=== PATIENT | female | born 1965 | race Caucasian/White ===

== ENCOUNTER 2019-12-18 09:32 | Outpatient (CLI) | payer MEDICAID, SELFPAY ==
--- NOTE | 2019-12-18 09:37 | FL_ITS ---
WS: [id number] UPPER GI WITH AIR TECHNICAL: Double contrast upper GI FLUOROSCOPY TIME: 3 minutes CLINICAL INFORMATION: GERD W/ESOPHAGITIS COMPARISON: None. FINDINGS: Swallowing: No evidence of aspiration or penetration. Esophagus: Moderate esophageal dysmotility with delayed emptying and tertiary contractions in the dis josse esophagus. Evidence of reflux esophagitis in the distal esophagus. Gastroesophageal reflux: Moderate reflux to the midesophagus observed in the upright and supine posit ions. Stomach: Diffuse prominent thickening of the gastric rugae consistent with gastritis. Suspected gastr ic ulcer in the fundus. Duodenum: Normal duodenal bulb. Other findings: Cholecystectomy clips. FL/FL upper GI w air* [id number] IMPRESSION: 1. Moderate esophageal dysmotility with delayed emptying and tertiary contract ions the distal esophagus. 2. Reflux esophagitis distal esophagus. 3. Moderate reflux is visualized in the upright and supine positions to the mi desophagus. 4. Diffuse prominent thickening of the gastric rugae consistent with gastritis . 5. Pooling of contrast in the gastric fundus suspicious for gastric ulcer. Thi s can be further evaluated with endoscopy.
== END 2019-12-18 09:33 | disposition home or self-care (01) ==
LOC: RAD 09:35
PROVIDERS: PCP Nurse Practitioner Family; Visit Provider Nurse Practitioner Family
DX: K21.0 Gastro-esophageal reflux disease with esophagitis (principal)
CPT/HCPCS: 74246

== ENCOUNTER → 2020-05-27 10:17 | Outpatient (BNVA) | payer MEDICAID, SELFPAY | PROVIDERS: PCP Nurse Practitioner Family; Visit Provider Surgery | DX: Z01.812 Encounter for preprocedural laboratory examination (principal) | CPT/HCPCS: 87635 ==

== ENCOUNTER 2020-06-01 06:20 | Day surgery (SDC) | payer MEDICAID, SELFPAY ==
[2020-05-30 13:59] VITALS: BMI 21.2
[2020-06-01 06:52] VITALS: BP 180/91; PULSE 92; RESP 18; TEMP 36.9; O2SAT 97
--- NOTE | 2020-06-01 06:55 | W.PM.OPSUD ---
Surgery/Procedure H&P Update DATE OF PROCEDURE: June 01, 2020 DATE H&P PERFORMED: 05/09/20 H&P UPDATE INFORMATION: I have reviewed H&P completed within last 30 days, I have examined patient prior to procedure and No changes to prior documentation PREOP DIAGNOSIS: Chronic diarrhea PRIMARY INDICATION FOR PROCEDURE: No change PLANNED PROCEDURE: Operation Date: 06/01/20 07:15 Proposed Procedures p Colonoscopy 05298 R19.7(Not Applicable) - Andrea Camacho MD
[2020-06-01] MEDS: sodium chloride 0.9% 1,000 ML 30 ML IV (06:59)
--- NOTE | 2020-06-01 07:25 | ANES.PREANE2 ---
Pre-Anesthetic Assessment Pre-Anesthetic Assessment: Height/Weight: Height 1.73 m Weight 63.503 kg Temp Pulse Resp BP Pulse Ox 98.4 F 92 18 180/91 97 06/01/20 06:52 06/01/20 06:52 06/01/20 06:52 06/01/20 06:52 06/01/20 06:52 Preop Diagnosis: Chronic diarrhea Proposed Procedure: Operation Date: 06/01/20 07:15 Proposed Procedures p Colonoscopy 28993 R19.7(Not Applicable) - Andrea Camacho MD Was Beta Estrellita taken within 24 hours: N/A Last intake: Intake Last Liquid Date 05/31/20 Last Liquid Time 21:00 Last Solid Date 05/30/20 Last Solid Time 22:00 Social: Social History: Tobacco and No alcohol Exam: Pre-Anes Outpt Exam: alert, oriented x 3 and regular rate & rhythm Airway: Submandibular: WNL Cervical ROM: WNL MP: 2 Dentition: False Pulmonary: Pulmonary: COPD GI: GI: GERD Musc/skel: Musc/skel: Lower Back Pain and OA/DJD Neuropsych: Neuropsych: Deficit (RUE) and Neuropathy Comments: Chronic pain/opioid Anesthetic Plan: ASA status: 3 Anesthesia: MAC Risk of > 500 ml blood loss (7ml/kg in children): No Meds/Allergies Current Medications: Current Medications Generic Name Dose Route Start Last Admin Trade Name Freq PRN Reason Stop Dose Admin Sodium Chloride 1,000 mls @ 30 ml s/hr 06/01/20 07:00 06/01/20 06:59 Sodium Chloride 0.9% IV 06/02/20 06:59 30 mls/hr .Q24H MANDEEP Administration Data Anesthesia Cardiac Studies: No Data to Display
[2020-06-01 07:46] VITALS: BP 91/60; PULSE 67; RESP 17; TEMP 36.2; O2SAT 95
[2020-06-01 08:01] VITALS: BP 115/64; PULSE 77; RESP 18; TEMP 36.4; O2SAT 96
--- NOTE | 2020-06-01 10:24 | ANE.PACU2 ---
Inpatient post-anesthesia follow up: Airway intact: Yes Vital signs: Temperature 97.5 F Pulse Rate 77 Respiratory Rate 18 Blood Pressure 115/64 Pulse Oximetry 96 Oxygen Delivery Me thod Room Air Oxygen Flow Rate Fraction of Inspir ed Oxygen Hydration adequate: Yes Nausea and vomiting: No Pain level: 1 Mental status: Baseline
== END 2020-06-01 08:40 | disposition home or self-care (01) ==
PROVIDERS: PCP Nurse Practitioner Family; Visit Provider Surgery
PROC: 0DJD8ZZ Inspection of Lower Intestinal Tract, Via Natural or Artificial Opening Endoscopic (ICD-10-PCS; CPT 45378; principal; 2020-06-01 07:15)
DX: K52.9 Noninfective gastroenteritis and colitis, unspecified (principal); D12.8 Benign neoplasm of rectum; J44.9 Chronic obstructive pulmonary disease, unspecified; K21.9 Gastro-esophageal reflux disease without esophagitis; M19.90 Unspecified osteoarthritis, unspecified site; Z79.891 Long term (current) use of opiate analgesic
CPT/HCPCS: 45380; 82274; 83630; 87493; 87506; 88305; J2704; J7030

== ENCOUNTER → 2020-06-03 14:45 | Outpatient (BNVA) | payer MEDICAID, SELFPAY | PROVIDERS: PCP Nurse Practitioner Family; Visit Provider Obstetrics & Gynecology | DX: N89.8 Other specified noninflammatory disorders of vagina (principal); Z12.4 Encounter for screening for malignant neoplasm of cervix; N82.3 Fistula of vagina to large intestine | CPT/HCPCS: 87491; 87591; 87661; 88175 ==

== ENCOUNTER → 2020-06-13 08:10 | Outpatient (BNVA) | payer MEDICAID, SELFPAY | PROVIDERS: PCP Nurse Practitioner Family; Visit Provider Obstetrics & Gynecology | DX: N82.8 Other female genital tract fistulae (principal) | CPT/HCPCS: 76830 ==

== ENCOUNTER → 2020-07-21 10:14 | Outpatient (BNVA) | payer MEDICAID, SELFPAY | PROVIDERS: PCP Nurse Practitioner Family; Visit Provider Obstetrics & Gynecology | DX: N82.3 Fistula of vagina to large intestine (principal) | CPT/HCPCS: 87635 ==

== ENCOUNTER 2020-07-27 12:04 | Observation (INO) | payer MEDICAID, SELFPAY ==
[2020-07-25 10:41] VITALS: BMI 22.6
[2020-07-25 11:17] LABS: OR HCG Qualitative Urine Negative (Negative)
[2020-07-25 11:36] LABS: Alanine Aminotransferase 26 U/L (0-33); Albumin Level 4.6 g/dL (3.5-5.2); Alkaline Phosphatase 111 IU/L (35-105); Anion Gap 14.3 (5-19); Aspartate Amino Transferase 25 U/L (0-32); Blood Urea Nitrogen 8 mg/dL (6-20); Calcium 9.1 mg/dL (8.5-10.5); Carbon Dioxide 30 mmol/L (22-29); Chloride 105 mmol/L (98-107); Globulin 3.1 g/dL (1.3-4.6); Glomerular Filtration Rate 128.1 mL/min (90-130); Glucose 74 mg/dL (65-115); Osmolality Calculated 297 mOsm/kg (285-295); Potassium 4.3 mmol/L (3.5-5.1); Sodium 145 mmol/L (136-145); Total Bilirubin 0.2 mg/dL (0.15-1.2); Total Protein 7.7 g/dL (6.6-8.7)
[2020-07-25 11:37] LABS: Basophils # 0.1 10^3/uL (0.0-0.1); Basophils % 0.8 %; Eosinophils # 0.3 10^3/uL (0.0-0.8); Eosinophils % 2.5 %; Hematocrit 46.2 % (37.0-47.0); Hemoglobin 14.2 g/dL (11.5-15.3); Lymphocytes # 4.2 10^3/uL (0.8-4.8); Lymphocytes % 38.8 %; Mean Corpuscular HGB Conc 30.7 g/dL (30.0-36.0); Mean Corpuscular Hemoglobin 26.3 pg (28.0-34.0); Mean Corpuscular Volume 85.7 fL (81-99); Mean Platelet Volume 11.9 fL (7.4-10.4); Monocytes # 0.9 10^3/uL (0.2-0.9); Monocytes % 8.1 %; Neutrophils # 5.33 10^3/uL (1.8-7.7); Neutrophils % 49.5 %; Nucleated Red Blood Cells % 0 %; Platelet Count 250 10^3/cmm (130-400); Red Blood Count 5.39 10^6/uL (4.1-5.3); Red Cell Distribution Width 16.6 % (12.1-15.1); White Blood Count 10.8 10^3/uL (4.0-10.0)
[2020-07-25 11:39] LABS: Urine Appearance Hazy (CLEAR); Urine Color Yellow (Yellow)
[2020-07-25 11:40] LABS: Add Urine Microscopic? YES; Bilirubin Urine Neg (Negative); Blood Urine Neg (Negative); Glucose Urine UA Norm (Normal); Ketones Urine Negative (Negative); Leukocyte Esterase Urine Negative (Negative); Nitrate Urine Negative (Negative); Protein Urine Neg (Negative); Urobilinogen Urine Norm (Negative); pH Urine 6 (5-7)
--- NOTE | 2020-07-25 11:45 | P.ANESASSM_ITS ---
Pre-Anesthetic Assessment Pre-Anesthetic Assessment: Height/Weight: Height 1.73 m Weight 67.585 kg Preop Diagnosis: Rectovaginal fistula Proposed Procedure: Operation Date: 07/27/20 10:45 Proposed Procedures p Recto-Vaginal Fistula Repair 37109 N82.3(Not Applicable) - Edilberto Montiel MD Was Beta Estrellita taken within 24 hours: N/A Was Clonidine taken within 24 hours: N/A Social: Social History: Tobacco and No alcohol Exam: Pre-Anes Outpt Exam: alert, oriented x 3 and regular rate & rhythm Airway: Submandibular: WNL Cervical ROM: WNL MP: 2 Dentition: False Pulmonary: Pulmonary: COPD GI: GI: GERD Musc/skel: Comments: Chronic pain Neuropsych: Neuropsych: Neuropathy Comments: Mylopathic neck disease Anesthetic Plan: ASA status: 3 Anesthesia: General Risk of > 500 ml blood loss (7ml/kg in children): No PFSH Anesthesia PFSH: Medical History Colon polyps Family History Family/Other Diabetes maternal aunt Stroke maternal Heart disease maternal aunt Brother Hypertension Mother Hypertension Heart disease Sister Colon cancer, Onset Age: 46 Denies family history of Ovarian cancer Clotting disorder Hyperlipidemia Breast cancer Anesthesia complication Bleeding disorder Uterine cancer Thyroid condition Social History (Updated 07/25/20 @ 09:35 by Kailee Vazquez RN) Smoking and tobacco status: current every day smoker cigarettes Packs smoked per day: 1 Alcohol intake: never Substance/Drug Use: never Female Reproductive History: Date of last menstrual period: 10/19/19 Data Anesthesia CBC & Chem 7: 07/25/20 10:55 07/25/20 10:55 Other Labs: Laboratory Results - last 48 hr 07/25/20 07/25/20 07/25/20 10:55 10:55 11:06 WBC 10.8 H RBC 5.39 H Hgb 14.2 Hct 46.2 MCV 85.7 MCH 26.3 L MCHC 30.7 RDW 16.6 H Plt Count 250 MPV 11.9 H Neut % (Auto) 49.5 Lymph % (Auto) 38.8 [place] % (Auto) 8.1 Eos % (Auto) 2.5 Baso % (Auto) 0.8 Neut # (Auto) 5.33 Lymph # (Auto) 4.2 [place] # (Auto) 0.9 Eos # (Auto) 0.3 Baso # (Auto) 0.1 Nucleated RBC % (auto) 0 Nucleated RBCs # 0.0 Sodium 145 Potassium 4.3 Chloride 105 Carbon Dioxide 30 H Anion Gap 14.3 BUN 8 Creatinine 0.5 GFR Calculation 128.1 Glucose 74 Calculated Osmolality 297 H Calcium 9.1 Total Bilirubin 0.2 AST 25 ALT 26 Alkaline Phosphatase 111 H Total Protein 7.7 Albumin 4.6 Globulin 3.1 Urine Color Yellow Urine Appearance Hazy A Urine pH 6 Ur Specific [place] 1.010 Urine Protein Neg Urine Glucose (UA) Norm Urine Ketones Negative Urine Blood Neg Urine Nitrate Negative Urine Bilirubin Neg Urine Urobilinogen Norm Ur Leukocyte Esterase Negative Amorphous Sediment Not Reportable Urine HCG, Qual 07/25/20 11:15 WBC RBC Hgb Hct MCV MCH MCHC RDW Plt Count MPV Neut % (Auto) Lymph % (Auto) [place] % (Auto) Eos % (Auto) Baso % (Auto) Neut # (Auto) Lymph # (Auto) [place] # (Auto) Eos # (Auto) Baso # (Auto) Nucleated RBC % (auto) Nucleated RBCs # Sodium Potassium Chloride Carbon Dioxide Anion Gap BUN Creatinine GFR Calculation Glucose Calculated Osmolality Calcium Total Bilirubin AST ALT Alkaline Phosphatase Total Protein Albumin Globulin Urine Color Urine Appearance Urine pH Ur Specific [place] Urine Protein Urine Glucose (UA) Urine Ketones Urine Blood Urine Nitrate Urine Bilirubin Urine Urobilinogen Ur Leukocyte Esterase Amorphous Sediment Urine HCG, Qual Negative Cardiac Studies: No Data to Display
[2020-07-25 12:20] LABS: Add Urine Culture? No; Bacteria Urine TRACE /hpf; Squamous Epithelial Cell Urine 25-40 /hpf (0-5)
[2020-07-27] VITALS (17 sets, daily range): BP systolic 107–177; BP diastolic 61–97; PULSE 62–88; RESP 12–20; TEMP 36.4–37.1; O2SAT 91–98
--- NOTE | 2020-07-27 09:50 | P.ANESUD_ITS ---
Pre-Anesthetic Update Pre-Anesthetic Assessment: Date of Surgery/Procedure: 07/27/20 Preop Nikki gnosis: Rectovaginal fistula Proposed Procedure: Operation Date: 07/27/20 10:45 Proposed Procedures p Recto-Vaginal Fistula Repair 90113 N82.3(Not Applicable) - Edilberto Montiel MD Any changes to Pre-Anesthetic Assessment?: No Last Intake: Intake Last Liquid Date 07/26/20 Last Liquid Time 23:59 Last Solid Date 07/26/20 Last Solid Time 22:00 Labs Last 48hrs: Laboratory Results - last 48 hr 07/25/20 07/25/20 07/25/20 10:55 10:55 10:55 WBC 10.8 H RBC 5.39 H Hgb 14.2 Hct 46.2 MCV 85.7 MCH 26.3 L MCHC 30.7 RDW 16.6 H Plt Count 250 MPV 11.9 H Neut % (Auto) 49.5 Lymph % (Auto) 38.8 [place] % (Auto) 8.1 Eos % (Auto) 2.5 Baso % (Auto) 0.8 Neut # (Auto) 5.33 Lymph # (Auto) 4.2 [place] # (Auto) 0.9 Eos # (Auto) 0.3 Baso # (Auto) 0.1 Nucleated RBC % (a uto) 0 Nucleated RBCs # 0.0 Sodium 145 Potassium 4.3 Chloride 105 Carbon Dioxide 30 H Anion Gap 14.3 BUN 8 Creatinine 0.5 GFR Calculation 128.1 Glucose 74 Calculated Osmolal ity 297 H Calcium 9.1 Total Bilirubin 0.2 AST 25 ALT 26 Alkaline Phosphata se 111 H Total Protein 7.7 Albumin 4.6 Globulin 3.1 Urine Color Urine Appearance Urine pH Ur Specific Gravit y Urine Protein Urine Glucose (UA) Urine Ketones Urine Blood Urine Nitrate Urine Bilirubin Urine Urobilinogen Ur Leukocyte Sangeetha ase Urine RBC Urine WBC Ur Squamous Epith Cells Amorphous Sediment Urine Bacteria Urine HCG, Qual Blood Type O Positive Rho(D) Type Positive / 4+ Antibody Screen Negative 07/25/20 07/25/20 11:06 11:15 WBC RBC Hgb Hct MCV MCH MCHC RDW Plt Count MPV Neut % (Auto) Lymph % (Auto) [place] % (Auto) Eos % (Auto) Baso % (Auto) Neut # (Auto) Lymph # (Auto) [place] # (Auto) Eos # (Auto) Baso # (Auto) Nucleated RBC % (a uto) Nucleated RBCs # Sodium Potassium Chloride Carbon Dioxide Anion Gap BUN Creatinine GFR Calculation Glucose Calculated Osmolal ity Calcium Total Bilirubin AST ALT Alkaline Phosphata se Total Protein Albumin Globulin Urine Color Yellow Urine Appearance Hazy A Urine pH 6 Ur Specific Gravit y 1.010 Urine Protein Neg Urine Glucose (UA) Norm Urine Ketones Negative Urine Blood Neg Urine Nitrate Negative Urine Bilirubin Neg Urine Urobilinogen Norm Ur Leukocyte Sangeetha ase Negative Urine RBC None Urine WBC None Ur Squamous Epith Cells 25-40 H Amorphous Sediment Not Reportable Urine Bacteria Trace Urine HCG, Qual Negative Blood Type Rho(D) Type Antibody Screen Vitals: Temperature 98.2 F 07/27/20 09:32 Temperature Source Temporal Artery S can 07/27/20 09:32 Pulse Rate 88 07/27/20 09:32 Respiratory Rate 18 07/27/20 09:32 Blood Pressure 177/97 07/27/20 09:32 Blood Pressure Aspen n 123 07/27/20 09:32 Pulse Oximetry 97 07/27/20 09:32 Oxygen Delivery Me thod 07/27/20 09:32 Exam: Pre-Anes Outpt Exam: alert, oriented x 3, clear to auscultation bilaterally and regular rate & rhythm Cardiac Studies: No Data to Display
[2020-07-27] MEDS: midazolam 1 mg/mL INJ 2 mL 2 MG IVP (10:15)
[2020-07-27] MEDS: sodium chloride 0.9% 1,000 ML 30 ML IV (10:40)
[2020-07-27] MEDS: scopolamine 1.5 Patch 1 PATCH TRANSDERMA (10:45)
[2020-07-27] MEDS: vancomycin 1,000 MG in sodium chloride 0.9% 250 ML 250 MG IV (10:45)
--- NOTE | 2020-07-27 10:47 | W.PM.OPSUD ---
Surgery/Procedure H&P Update DATE OF PROCEDURE: July 27, 2020 DATE H&P PERFORMED: 07/25/20 H&P UPDATE INFORMATION: I have reviewed H&P completed within last 30 days, I have examined patient prior to procedure and No changes to prior documentation PREOP DIAGNOSIS: Rectovaginal fistula PLANNED PROCEDURE: Operation Date: 07/27/20 10:45 Proposed Procedures p Recto-Vaginal Fistula Repair 70625 N82.3(Not Applicable) - Edilberto Montiel MD
[2020-07-27] MEDS: levofloxacin-dextrose 5 % 500 MG/100 ML PREMIX 100 MG IV (10:55)
--- NOTE | 2020-07-27 11:39 | P.OP_ITS ---
Operative Report Date of procedure: July 27, 2020 Pre-op Diagnosis: Rectovaginal fistula Post-op diagnosis: same Anesthesia: MAC Estimated blood loss (mL): 15 IV fluids (mL): 400 Urine output (mL): 100 Condition: stable Disposition: PACU Brief History: 54-year-old female with rectovaginal fistula Procedure: The patient after confirming and assuring the patient had signed the informed consent she was taken to the operating room where she underwent anesthesia. She was then placed in the lithotomy position using candy-cane stirrups. The vulva and vagina were prepped and the patient was draped. A time out procedure was performed. A lacrimal duct probe was used to define the fistulous tract and a transperineal incision was made. The rectovaginal septum was developed and with an index finger in the rectum, the rectovaginal septum was easily defined. The fistulous tract was isolated and using the lacrimal duct probe, it was completely isolated. Using electrocautery dissection on the pure cut mode, the rectal mucosa was entered in a circumferential fashion as was the vaginal mucosa. This allowed for removal of the fistulous tract intact, with both epithelial layers preserved. The perineum and rectum were irrigated vigorously and then the rectal mucosa was reapproximated by imbricating it with a running stitch of number 3-0 vicryl. The rectal vault was distended with saline and the repair was watertight. The defect was irrigated, suctioned, inspected and found to be free of clot, blood or debris. The perineal body was reconstructed with reapproximation of the levator muscles, using a series of interrupted horizontal mattress stitches of number 2-0 Vicryl. This allowed for excellent latter-day of the perineal body. After this was accomplished, the defect was once again irrigated, suctioned, inspected, and found to be free of clot, blood or debris. The vaginal defect was closed with a running locking stitch of number 2-0 Vicryl and the perineal incision was closed with a subcuticular stitch of number 2-0 Vicryl. The patient was awakened and taken to the recovery room in stable condition, after having tolerated the procedure well.
--- NOTE | 2020-07-27 11:47 | P.PCN_ITS ---
PACU note PACU note: VSS, Good respiratory effort, report to PUBLIC SERVICE ADMINISTRATOR Post-Anesthesia Exam: awake
--- NOTE | 2020-07-27 11:47 | PM.PACU ---
PACU note PACU note: VSS, Good respiratory effort, report to TRAVELING ENGINEER Post-Anesthesia Exam: awake
[2020-07-27] MEDS: HYDROcodone-acetaminophen 5-325 mg Tablet PO ×2 (12:57→20:12)
--- NOTE | 2020-07-27 12:58 | PC.NURSE ---
When patient stood up from the gurney to ambulate to the bed in her room, vaginal packing came out. Verified by [facility] PACU nurse.
--- NOTE | 2020-07-27 13:19 | PC.SOCIAL ---
CM was triggered, spoke to OB nurse. False trigger. States no needs from CM.
--- NOTE | 2020-07-27 13:23 | PC.NURSE ---
Patient reports her pain is a 5, and she reports her pain is at a level which is normal for her.
[2020-07-27] MEDS: dextrose 5%-lactated ringers 1,000 ML 125 ML IV (14:21)
--- NOTE | 2020-07-27 14:23 | PC.NURSE ---
Patient reports passing gas a few times.
--- NOTE | 2020-07-27 14:32 | ANE.PACU2 ---
Inpatient post-anesthesia follow up: Airway intact: Yes Vital signs: Temperature 97.5 F Pulse Rate 63 Respiratory Rate 15 Blood Pressure 121/63 Pulse Oximetry 96 Oxygen Delivery Me thod Room Air Oxygen Flow Rate Fraction of Inspir ed Oxygen Hydration adequate: Yes Nausea and vomiting: No Pain level: 1 Mental status: Baseline
[2020-07-27] MEDS: baclofen 10 mg Tablet PO ×2 (14:34→20:12)
[2020-07-27] MEDS: pregabalin 100 mg Capsule PO ×3 (14:34→20:12)
--- NOTE | 2020-07-27 14:37 | PC.NURSE ---
Patient changed 1 pad, less than 1/4 saturated.
--- NOTE | 2020-07-27 15:48 | PC.NURSE ---
pt up to the restroom at this time. Patient only had 120mL of urine in hat and she missed the hat with part of her voiding. New peripad placed.
[2020-07-27] MEDS: docusate sodium 100 mg Capsule PO (17:10)
[2020-07-27] MEDS: ibuprofen 800 mg tablet PO (20:12)
[2020-07-27] MEDS: benzonatate 100 mg Capsule 200 MG PO (21:28)
[2020-07-28] MEDS: ibuprofen 800 mg tablet PO (05:07)
[2020-07-28] MEDS: HYDROcodone-acetaminophen 5-325 mg Tablet PO ×2 (05:07→10:15)
[2020-07-28 05:11] VITALS: BP 126/56; PULSE 55; RESP 16; TEMP 36.6; O2SAT 93
[2020-07-28 05:36] LABS: Hematocrit 39.8 % (37.0-47.0); Hemoglobin 12.1 g/dL (11.5-15.3); Mean Corpuscular HGB Conc 30.4 g/dL (30.0-36.0); Mean Corpuscular Hemoglobin 26.5 pg (28.0-34.0); Mean Corpuscular Volume 87.3 fL (81-99); Mean Platelet Volume 11.9 fL (7.4-10.4); Platelet Count 212 10^3/cmm (130-400); Red Blood Count 4.56 10^6/uL (4.1-5.3); Red Cell Distribution Width 16.9 % (12.1-15.1); White Blood Count 9.5 10^3/uL (4.0-10.0)
[2020-07-28] MEDS: pregabalin 100 mg Capsule PO (08:10)
[2020-07-28] MEDS: pantoprazole DR 40 mg Tablet PO (08:10)
[2020-07-28] MEDS: docusate sodium 100 mg Capsule PO (08:10)
[2020-07-28] MEDS: baclofen 10 mg Tablet PO (08:10)
--- NOTE | 2020-07-28 10:04 | PM.SDS ---
Short Stay Summary Providers Date of Admit/Discharge: 07/28/20 Attending Provider: Edilberto Montiel MD Primary Care Provider: Rosita Wright Chief Complaint: Rectovaginal fistula HPI History of Present Illness Eliane Lawrence is a 54 year old female with a rectovaginal fistula approximately 3 cm from the introitus Review of Systems General: Reports: 10 or more systems reviewed and unremarkable except in HPI and below Const: Denies: fever(s), chills or body aches Eyes: Denies: change in vision or blurry vision ENMT: Denies: throat pain or odynophagia Card: Denies: chest pain or palpitations Resp: Reports: dyspnea; Denies: productive cough or non-productive cough GI: Reports: diarrhea, constipation and hematochezia; Denies: abdominal pain, nausea or vomiting : Reports: amenorrhea (no menses since 1 year); Denies: flank pain, difficulty voiding or dysuria Musc: Reports: neck pain and back pain Skin/Breast: Reports: rash Neuro: Reports: headache(s) and numbness in extremities; Denies: seizure-like activity Psych: Reports: anxiety; Denies: depression Ramiro/Lymph: Denies: easy bruising or easy bleeding All/Imm: Denies: urticaria Home Meds/Allergies Home Medications and Allergies Home Medications Medication Instructions Recorded Confirmed Type baclofen 10 mg tablet 10 mg PO TID 05/09/20 07/25/20 History benzonatate 200 mg capsule 200 mg PO BID PRN 05/09/20 07/25/20 History fluticasone propionate 50 1 spray INTRANASAL DAILY 05/09/20 07/27/20 History mcg/actuation nasal spray,suspension hydrocodone 10 mg-acetaminophen 1 tab PO Q6H PRN 05/09/20 07/25/20 History 325 mg tablet hydroxyzine HCl 25 mg tablet 25 mg PO QID PRN 05/09/20 07/27/20 History loperamide 2 mg capsule 2 mg PO Q6H PRN 05/09/20 07/25/20 History pseudoephedrine-guaifenesin ER 60 1 tab PO BID PRN 05/09/20 07/25/20 History mg-600 mg tablet,extend release 12hr pantoprazole 40 mg tablet,delayed 40 mg PO BID tab 07/25/20 07/25/20 History release pregabalin 100 mg capsule 100 mg PO QID cap 07/25/20 07/27/20 History Allergies Allergy/AdvReac Type Severity Reaction Status Date / Time morphine Allergy Intermediate vomiting Verified 07/25/20 10:37 Penicillins Allergy unknown Verified 07/25/20 10:37 PFSH Acute PFSH: Medical History Colon polyps Family History Family/Other Diabetes maternal aunt Stroke maternal Heart disease maternal aunt Brother Hypertension Mother Hypertension Heart disease Sister Colon cancer, Onset Age: 46 Denies family history of Ovarian cancer Clotting disorder Hyperlipidemia Breast cancer Anesthesia complication Bleeding disorder Uterine cancer Thyroid condition Social History (Updated 07/25/20 @ 09:35 by Kailee Vazquez RN) Smoking and tobacco status: current every day smoker cigarettes Packs smoked per day: 1 Alcohol intake: never Female Reproductive History: Date of last menstrual period: 10/19/19 Vitals/I&O/Wt Last Vital Signs Temp 97.8 F 07/28/20 05:11 Pulse 55 L 07/28/20 05:11 Resp 16 07/28/20 05:11 BP 126/56 07/28/20 05:11 Pulse Ox 93 07/28/20 05:11 07/27/20 07/28/20 07/28/20 22:59 06:59 14:59 Intake Total 379.167 / 1969.167 400 / 2369.167 Output Total 440 / 1030 300 / 1330 Balance -60.833 / 939.167 100 / 1039.167 Physical Exam Narrative: EXAM NARRATIVE: GA: Alert and oriented ?3. HEENT: WNL. Heart: Regular rate and rhythm. Lungs: Clear to auscultation bilaterally. Abdomen: Bowel sounds present, nontender, minimal tenderness, incision clean and dry, no redness, pain or edema. SERVICE STATION HELPER: No bleeding. Extremities: No edema, no cyanosis, no calves pain. Urinary Catheter Management^: Beckham Latex Free: Cath Placed During This Visit: yes, but has since been removed by the nurse Urinary Catheter Date of Insertion: 07/27/20 Urinary Catheter Time of Insertion: 11:09 Date Urinary Catheter Removed: 07/27/20 Time Urinary Catheter Discontinued: 11:25 Hospital Course Hospital Course Mrs. Lawrence 54-year-old female with a rectovaginal fistula approximately 3 cm from introitus. Admitted for rectovaginal fistula repair. The procedure was performed without complications. Overnight observation was uneventful. Tolerating diet well. Ambulating without difficulty. Pain under control. She is afebrile and hemodynamically stable SSS Data Data Completed and Pending: Pending at discharge Category Date Time Status Pathology: Surgic al [PTH] Routine Pth 07/27/20 11:46 Received Discharge Plan Discharge Patient Disposition: Home Condition: Stable Prescriptions: New docusate sodium [Colace] 100 mg capsule 100 mg PO BID Qty: 60 RF: 0 ibuprofen 800 mg tablet 800 mg PO TID PRN (Reason: pain) Qty: 60 RF: 0 Continued hydroxyzine HCl 25 mg tablet 25 mg PO QID PRN (Reason: Itching) RF: 0 fluticasone propionate [Allergy Relief (fluticasone)] 50 mcg/actuation spray,suspension 1 spray intranasal DAILY RF: 0 baclofen 10 mg tablet 10 mg PO TID RF: 0 hydrocodone-acetaminophen 10-325 mg tablet 1 tab PO Q6H PRN (Reason: Pain) RF: 0 benzonatate 200 mg capsule 200 mg PO BID PRN (Reason: Cough) RF: 0 loperamide [Anti-Diarrheal (loperamide)] 2 mg capsule 2 mg PO Q6H PRN (Reason: Diarrhea) RF: 0 pseudoephedrine-guaifenesin [Mucinex D] 60-600 mg tablet extended release 12 hr 1 tab PO BID PRN (Reason: Cough) RF: 0 pantoprazole 40 mg tablet,delayed release (DR/EC) 40 mg PO BID RF: 0 pregabalin 100 mg capsule 100 mg PO QID RF: 0 Discharge Orders: Discharge Order (Routine); Ordered 07/28/20 Ordered By: Edilberto Montiel Referrals: Edilberto Montiel MD [Physician] - (* Your 2 week check up is on 08/12/2020 at 10:45am. * Your 6 week follow up appointment is on 09/09/2020 at 1:00pm) Discharge Diet: GI Soft Discharge Activity: Limit activity as instructed Patient Instructions: Rectal Fistulotomy (DC), OB Discharge Report, OB Food/Drug Interaction Guide, Opioid Safety Activity Restrictions/Additional Instructions: 1. Please call [facility] on next working day to make your post-operative appointment in 2 weeks. 2. Please stay home until you come back to the clinic on first post-operative check up. 3. Please follow instructions on your medications CAREFULLY. 4. If you have abdominal incision, do not cover it unless dressing is necessary because of drainage. OK to shower, but avoid bath. Leave steri-strips until they fall off. If they are still on one week after surgery, you may remove them. 5. If you had vaginal surgery or vaginal repair, Dr. Montiel may instruct you to take SITZ bath. 6. Yellow, blood tinged odorous vaginal discharge is usually normal after hysterectomy or vaginal surgeries. 7. No sexual intercourse, tampons, or douches until you are completely released from the post-operative care. 8. Avoid constipation by eating right and maybe using some Metamucil or Milk of Magnesia. 9. All prescription refills are given during the working hours. Please do no wait till it runs out. Call the clinic at [phone] before your medication runs out. The clinic will get in touch with your doctor to prescribe medications if necessary. 10. Please remain within 40 mile radius from our hospital because emergencies do happen now and then during the post-operative period. 11. If you have stairs at home, take one step at a time slowly and minimize the number of trips. It helps to stay in one floor for the next few days. No lifting except what you can lift by one hand until you are released from the post-operative care. 12. Driving is discouraged until you are well healed. It may be 3-4 weeks before you feel strong enough to drive. You should be able to turn and look through the rear window without pain and you should be able to push the brake pedal very hard without pain before you drive. No fast rules, but SAFETY should be your primary concern. DO NOT drive if you are on sedating medications such as narcotics. 13. Call the clinic (during working hours) to make urgent appointment or go to the Emergency room, if any of the following occurs: i. Vaginal bleeding becomes heavy, more than a period. ii. Incision becomes red and sore, or drains pus. iii. Your temperature is over 100.4 or you have chill. iv. IV site becomes red and swollen (a little ``knot?? is usually OK) v. Persistent nausea and vomiting vi. Persistent constipation or diarrhea vii. Rash or allergic reaction to medications. Attestations Medical Necessity Statement*: In my professional opinion per admitting diagnosis Time Spent in Patient Care*: greater than 30 min Quality Metrics Clinical Quality Measures: During this hospital stay, did patient experience: None Coding Level of Care Code Acute Deputy Jailer for Ruben Gibson
[2020-07-28 10:50] VITALS: BP 153/54; PULSE 92; RESP 18; TEMP 36.5; O2SAT 96
--- NOTE | 2020-07-29 18:03 | PC.RESP ---
Smoking Cessation information sent to patient.
== END 2020-07-28 10:55 | disposition home or self-care (01) ==
LOC: OBGYN 12:34
PROVIDERS: Admitting Provider Obstetrics & Gynecology; PCP Nurse Practitioner Family; Visit Provider Obstetrics & Gynecology
PROC: (CPT 57308; principal; 2020-07-27 10:35)
DX: N82.3 Fistula of vagina to large intestine (principal); F17.210 Nicotine dependence, cigarettes, uncomplicated; J44.9 Chronic obstructive pulmonary disease, unspecified; K21.9 Gastro-esophageal reflux disease without esophagitis; G89.29 Other chronic pain
CPT/HCPCS: 57308; 36415; 80053; 81001; 84703; 85025; 85027; 86850; 86900; 96374; G0378; J1885; J1956; J2250; J2405; J2704; J3010; J3370; J7030; J7050

== ENCOUNTER 2020-08-24 23:00 | Observation (INO) | payer MEDICAID, SELFPAY ==
[2020-08-25] VITALS (24 sets, daily range): BP systolic 122–193; BP diastolic 58–88; PULSE 74–98; RESP 14–22; TEMP 36.2–37.2; O2SAT 90–96
--- NOTE | 2020-08-25 | SCC_ITS ---
Procedure Done: Open reduction internal fixation right tibia fracture, long oblique, with Radha intramedullary jonathan 459.1 seconds of fluoroscopic guidance, for a cumulative dose of 13.57 mGy, was provided to Dr. Torres by the radiology department. C-arm images of the RIGHT tibia fibula were saved for the patient's permanent record.. [facility]
--- NOTE | 2020-08-25 00:52 | PM.HP ---
Providers/Chief Complaint Admitting Physician: Brad Fritz Primary Care Provider: Rosita Wright LOCATION MANAGER Chief Complaint: broken leg History of Present Illness Eliane Lawrence is a 54 year old female who was transferred from [facility] with diagnosis of displaced right tib-fib fracture. The patient was accepted by Nicolasa Zamudio. The patient reports that she fell yesterday afternoon in her room. It was dark and she did not see the floor lamp. She tripped over it and fell. Developed severe pain in the right lower extremity after the fall. The patient received fentanyl and . the right lower extremity was immobilized. Currently the pain is minimal. Reports worsening with movements. Denies any associated symptoms. Denies any other types of trauma during the fall. Denies dizziness, lightheadedness, weakness before or after the fall. Denies headache or neck pain. No chest pain, shortness of breath, cough, palpitations. No nausea or vomiting. No diarrhea. Denies any significant prior chronic medical conditions. Social history. Reports smoking tobacco on a regular basis. Denies drugs and alcohol use. Review of Systems General: Reports: 10 or more systems reviewed and unremarkable except in HPI and below Medications/Allergies Home Medications Medication Instructions Recorded Confirmed Last Taken Type baclofen 10 mg tablet 10 mg PO TID 05/09/20 08/12/20 07/27/20 07:00 History benzonatate 200 mg capsule 200 mg PO BID PRN 05/09/20 08/12/20 07/27/20 07:00 History fluticasone propionate 50 1 spray INTRANASAL DAILY 05/09/20 08/12/20 07/26/20 History mcg/actuation nasal spray,suspension hydrocodone 10 mg-acetaminophen 1 tab PO Q6H PRN 05/09/20 08/12/20 07/27/20 07:00 History 325 mg tablet hydroxyzine HCl 25 mg tablet 25 mg PO QID PRN 05/09/20 08/12/20 07/26/20 History loperamide 2 mg capsule 2 mg PO Q6H PRN 05/09/20 08/12/20 07/26/20 History pseudoephedrine-guaifenesin ER 60 1 tab PO BID PRN 05/09/20 08/12/20 07/27/20 07:00 History mg-600 mg tablet,extend release 12hr pantoprazole 40 mg tablet,delayed 40 mg PO BID tab 07/25/20 08/12/20 07/27/20 07:00 History release pregabalin 100 mg capsule 100 mg PO QID cap 07/25/20 08/12/20 07/27/20 07:00 History docusate sodium [Colace] 100 mg PO BID #60 cap 07/28/20 08/12/20 Unknown Rx ibuprofen 800 mg PO TID PRN #60 tab 07/28/20 08/12/20 Unknown Rx Allergies Allergy/AdvReac Type Severity Reaction Status Date / Time ibuprofen Allergy Intermediate Nausea/vomi Verified 08/12/20 10:55 ting morphine Allergy Intermediate vomiting Verified 08/12/20 10:55 Penicillins Allergy unknown Verified 08/12/20 10:55 PFSH Acute PFSH: Medical History (Updated 08/15/20 @ 11:18 by Edilberto Montiel MD) Aftercare following surgery of the genitourinary system Colon polyps Surgical History (Updated 08/15/20 @ 11:18 by Edilberto Montiel MD) H/O vaginal surgery 07/27/2020- rectovaginal fistula repair performed by Dr. Montiel at [facility] History of cholecystectomy History of colonoscopy with polypectomy (~05/2020) History of neck surgery Family History Family/Other Diabetes maternal aunt Stroke maternal Heart disease maternal aunt Brother Hypertension Mother Hypertension Heart disease Sister Colon cancer, Onset Age: 46 Denies family history of Ovarian cancer Clotting disorder Hyperlipidemia Breast cancer Anesthesia complication Bleeding disorder Uterine cancer Thyroid condition Social History (Updated 08/12/20 @ 10:57 by Kailee Vazquez RN) Smoking and tobacco status: current every day smoker cigarettes Packs smoked per day: 0.5 Alcohol intake: never Female Reproductive History: Date of last menstrual period: 10/19/19 Physical Exam Narrative: EXAM NARRATIVE: The patient is awake alert oriented. No acute distress. Mood and affect are appropriate. Responses are adequate. Skin is warm and dry. Moist mucous membranes Eyes PERRL, extraocular muscles are intact. Normal speech. Neck supple. No JVD. Nontender. Lungs bilateral diffuse wheezes. No respiratory distress. No crackles. Heart S1, S2, regular Abdomen soft, nontender, bowel sounds are present Extremities right lower extremity is immobilized. Toes are pink and warm. Left lower extremity without edema or cyanosis. No calf tenderness. Neurologic examination reveals no significant weakness. Movements in the right lower extremity are limited due to the cost and pain. Data Other Labs: CBC revealed mild leukocytosis. Probably reactive. Chemistry panel mild elevation of sodium. Otherwise no significant abnormalities. Chest x-ray showed clear lungs and normal size of heart. No acute findings. EKG showed T wave inversion in septal leads. Normal sinus. A&P Additional A&P Information 54-year-old female who was transferred from [facility] with diagnosis of right tib-fib displaced fracture after a mechanical fall. Right tib-fib fracture. NPO. Dilaudid as needed. The patient will be seen by Dr. Russell in the morning. Probably will undergo surgery. Perioperative risk assessment. The patient will probably undergo intermediate risk surgery. The patient has T wave changes on EKG. No previous to compare with. However no history of CHF or coronary artery disease. No chest pain or shortness of breath. She reports good functional status which is above 4 METS. She is in her most optimal state to undergo this surgery. No additional treatments or testing is necessary prior to the surgery. Hypertension. Will order as needed labetalol. Tobacco abuse. Counseling is provided. The plan of care was discussed with the patient. She verbalized understanding and agreement. Attestations Medical Necessity Statement*: Observation Coding Level of Care Code Acute Money Room Supervisor for Ruben Gibson
[2020-08-25] MEDS: lactated ringers 1,000 ML 75 ML IV ×2 (01:09→18:12)
[2020-08-25] MEDS: famotidine 20 mg/2 mL INJ IVP (01:09)
[2020-08-25] MEDS: HYDROmorphone 1 mg/mL INJ 1 mL 0.2 MG IVP ×2 (05:20→09:11)
[2020-08-25 06:18] LABS: Basophils # 0.1 10^3/uL (0.0-0.1); Basophils % 0.7 %; Eosinophils # 0.1 10^3/uL (0.0-0.8); Eosinophils % 1.1 %; Hematocrit 41.6 % (37.0-47.0); Hemoglobin 12.8 g/dL (11.5-15.3); Lymphocytes # 2.4 10^3/uL (0.8-4.8); Lymphocytes % 22.7 %; Mean Corpuscular HGB Conc 30.8 g/dL (30.0-36.0); Mean Corpuscular Hemoglobin 26.7 pg (28.0-34.0); Mean Corpuscular Volume 86.8 fL (81-99); Mean Platelet Volume 11.6 fL (7.4-10.4); Neutrophils # 7.09 10^3/uL (1.8-7.7); Neutrophils % 66.3 %; Nucleated Red Blood Cells % 0 %; Platelet Count 201 10^3/cmm (130-400); Red Blood Count 4.79 10^6/uL (4.1-5.3); Red Cell Distribution Width 16.1 % (12.1-15.1); White Blood Count 10.7 10^3/uL (4.0-10.0)
[2020-08-25 06:34] LABS: INR 1.02 (0.8-1.2)
[2020-08-25 06:43] LABS: Anion Gap 12.2 (5-19); Blood Urea Nitrogen 7 mg/dL (6-20); Calcium 8.9 mg/dL (8.5-10.5); Carbon Dioxide 31 mmol/L (22-29); Chloride 106 mmol/L (98-107); Glomerular Filtration Rate 128.1 mL/min (90-130); Glucose 108 mg/dL (65-115); Magnesium 2.1 mg/dL (1.7-2.3); Osmolality Calculated 299 mOsm/kg (285-295); Potassium 4.2 mmol/L (3.5-5.1); Sodium 145 mmol/L (136-145)
[2020-08-25 07:08] LABS: Partial Thromboplastin Time 27.8 SECONDS (23.9-36.7)
--- NOTE | 2020-08-25 07:30 | XRR_ITS ---
PROCEDURE INFORMATION: Exam: XR Right Tibia and Fibula Exam date and time: 08/25/2020 7:49 AM Age: 54 years old Clinical indication: Injury or trauma and condition or disease; Fall; Other: FX; Blunt trauma; Lower leg; Right; Injury date: 08/24/20; Additional info: Fracture TECHNIQUE: Imaging protocol: XR Right tibia and fibula. Views: 2 views. COMPARISON: DX Tibia and Fibula RIGHT [id number] 08/24/2020 6:54 PM FINDINGS: Bones/joints: Obliquely oriented displaced proximal fibular fracture. Minimal change from the previous radiograph. Obliquely oriented displaced fracture involving the distal tibial diaphysis. Soft tissues: Limited characterization of the osseous structures and soft tissues secondary to the overlying cast. XR/XR tibia fibula RT 2V [id number] IMPRESSION: Limited characterization of the osseous structures and soft tissues secondary to the overlying cast. Obliquely oriented displaced proximal fibular fracture. Minimal change from the previous radiograph. Obliquely oriented displaced fracture involving the distal tibial diaphysis. Minimal change.
--- NOTE | 2020-08-25 08:22 | CT_ITS ---
WS: [id number] NONCONTRAST CT RIGHT ANKLE WITH CORONAL AND SAGITTAL REFORMATTED IMAGES. TECHNIQUE: Noncontrast CT right ankle with coronal and sagittal reformatted images. CLINICAL INFORMATION: possible facture COMPARISON: Comparison outside radiographs 08/24August 25, 2020 DLP: 2356.[address] scans at [facility] use at least one of these dose optimization techniques: automat ed exposure control; mA and/or kV adjustment per patient size (includes targeted exams where dose is matched to clinical indication); or iterative reconstruction. FINDINGS: Splint material left lower extremity and left ankle. Normal medial and lateral malleolus. Distal fibu la is normal in appearance. Moderate degenerative changes at the ankle mortise with subchondral cysti c change involving the talar dome. Partially visualized oblique spiral type fracture involving the ti rola diaphysis. Anterior displacement of the proximal fragment measuring 1 shaft width. Additional non displaced fracture involving the proximal fracture fragment distally. Oblique fracture is slightly co mminuted with a few small satellite fracture fragments. Benign enchondroma right tibia diametaphysis. Additional similar-appearing enchondroma distal left ti rola diametaphysis.Small plantar and Achilles calcaneal spurs. CT/CT ankle RT wo con* [id number] IMPRESSION: 1. Ankle mortise is normal in appearance. Normal medial and lateral malleolus. 2. 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 3. Oblique spiral type fracture involving the tibial diaphysis with one shaft width anterior displacement of the proximal fragment. A few tiny satellite frac ture fragments. 4. Benign enchondroma distal tibial shaft.
[2020-08-25] MEDS: albuterol 8 gm MDI 2 PUFF INHALATION ×2 (09:04→19:26)
--- NOTE | 2020-08-25 09:09 | PM.CONSULT ---
Providers/Reason For Consult Consulting Physican/Specialty*: Inga Torres MD Reason for Consult*: Right tibial shaft with fibula fracture Requesting Physcian: [facility] emergency department Attending Physician: Vandana Morgan MD Primary Care Provider: Rosita Wright History of Present Illness History of Present Illness Eliane Lawrence is a 54 year old female who presented from [facility] after suffering a displaced right tibial shaft fracture with proximal fibula fracture. The patient was splinted at the emergency department, and upon discussion with the emergency room physician, he felt admission would be appropriate to the medical service secondary to the patient's multiple medical issues. The patient was transferred hospital to hospital and evaluated by the medical service. She has been approved for operative intervention. The patient states that she was in her chair where she sleeps, and she did not have the light on. She tripped and fell over the floor lamp. She denies any loss of consciousness or other reason for her fall. Review of Systems General: Reports: 10 or more systems reviewed and unremarkable except in HPI and below Const: Denies: fever(s) or chills Eyes: Denies: change in vision Card: Denies: chest pain or dyspnea on exertion Resp: Reports: other (Chronic findings of COPD) GI: Reports: abdominal pain and nausea Musc: Reports: muscle weakness and other (Peripheral neuropathy) Skin/Breast: Denies: erythema or changes in skin color Neuro: Reports: numbness in extremities (Secondary to previous spinal issues) and other (Unable to open right hand secondary to spinal issues, chronic) Psych: Denies: anxiety or depression Ramiro/Lymph: Denies: easy bruising or easy bleeding Meds/Allergies Home Medications and Allergies Home Medications Medication Instructions Recorded Confirmed Last Taken Type baclofen 10 mg tablet 10 mg PO TID 05/09/20 08/12/20 07/27/20 07:00 History benzonatate 200 mg capsule 200 mg PO BID PRN 05/09/20 08/12/20 07/27/20 07:00 History fluticasone propionate 50 1 spray INTRANASAL DAILY 05/09/20 08/12/20 07/26/20 History mcg/actuation nasal spray,suspension hydrocodone 10 mg-acetaminophen 1 tab PO Q6H PRN 05/09/20 08/12/20 07/27/20 07:00 History 325 mg tablet hydroxyzine HCl 25 mg tablet 25 mg PO QID PRN 05/09/20 08/12/20 07/26/20 History pantoprazole 40 mg tablet,delayed 40 mg PO BID tab 07/25/20 08/12/20 07/27/20 07:00 History release pregabalin 100 mg capsule 100 mg PO QID cap 07/25/20 08/12/20 07/27/20 07:00 History docusate sodium [Colace] 100 mg PO BID PRN 08/25/20 08/25/20 Unknown History Allergies Allergy/AdvReac Type Severity Reaction Status Date / Time ibuprofen Allergy Intermediate Nausea/vomi Verified 08/12/20 10:55 ting morphine Allergy Intermediate vomiting Verified 08/12/20 10:55 Penicillins Allergy unknown Verified 08/12/20 10:55 Current Medications Current Medications Generic Name Dose Route Start Last Admin Trade Name Freq PRN Reason Stop Dose Admin Albuterol Sulfate 2 puff 08/25/20 00:51 08/25/20 09:04 Albuterol 8 Gm Mdi INHALATION 2 puff Q4H.RESPIRATORY PRN Administration SHORTNESS OF BREATH Famotidine 20 mg 08/25/20 01:00 08/25/20 01:09 Famotidine 20 Mg/2 Ml Inj IVP 20 mg Q12H MANDEEP Administration Hydromorphone HCl 0.2 mg 08/25/20 00:46 08/25/20 05:20 Hydromorphone 1 Mg/Ml Inj 1 Ml IVP 0.2 mg Q4H PRN Administration PAIN Lactated Ringer's 1,000 mls @ 75 mls/hr 08/25/20 01:00 08/25/20 01:09 Lactated Ringers IV 75 mls/hr .[id number] MANDEEP Administration PFSH Acute PFSH: Medical History (Updated 08/25/20 @ 08:16 by Inga Torres MD) Aftercare following surgery of the genitourinary system Colon polyps Surgical History (Updated 08/15/20 @ 11:18 by Edilberto Montiel MD) H/O vaginal surgery 07/27/2020- rectovaginal fistula repair performed by Dr. Montiel at [facility] History of cholecystectomy History of colonoscopy with polypectomy (~05/2020) History of neck surgery Family History Family/Other Diabetes maternal aunt Stroke maternal Heart disease maternal aunt Brother Hypertension Mother Hypertension Heart disease Sister Colon cancer, Onset Age: 46 Denies family history of Ovarian cancer Clotting disorder Hyperlipidemia Breast cancer Anesthesia complication Bleeding disorder Uterine cancer Thyroid condition Social History (Updated 08/12/20 @ 10:57 by Kailee Vazquez RN) Smoking and tobacco status: current every day smoker cigarettes Packs smoked per day: 0.5 Alcohol intake: never Female Reproductive History: Date of last menstrual period: 10/19/19 Vitals/I&O/Wt Last Vital Signs Temp 97.8 F 08/25/20 08:00 Pulse 82 08/25/20 08:00 Resp 16 08/25/20 08:00 BP 173/83 08/25/20 08:00 Pulse Ox 93 08/25/20 08:00 Weight last 48 hrs Weight 161 lb Physical Exam Const: COMMON NORMALS: no acute distress, average body habitus, patient oriented x3 and alert GENERAL APPEARANCE: cooperative and comfortable ORIENTATION/CONSCIOUSNESS: Yes awake HENMT: COMMON NORMALS: normocephalic and atraumatic HEAD & SCALP: normocephalic and atraumatic Eye: GENERAL EYE: appearance normal, both eyes and all related structures Chest: COMMONS NORMALS: normal inspection of the chest Resp: COMMON NORMALS: normal respiratory effort EFFORT & INSPECTION: Yes able to speak in complete sentences and Yes symmetric chest movement Extremity: NARRATIVE EXTREMITY EXAM: Right lower extremity is in a long-leg splint. This is a posterior plus sugar tong RIGHT LOWER EXTREMITY: Yes lower leg (Splint is in place, and patient appears comfortable) and Yes foot & digits (Able to move toes) Right foot and digits: Yes inspection (No significant swelling in the toes) and Yes neurovascular exam (Movement and sensation are present, chronic sensory decrease) Neuro: COMMON NORMALS: patient oriented x3 SENSORIUM/ORIENTATION: Yes alert Psych: COMMON NORMALS: mental status grossly normal APPEARANCE: Yes grossly normal ATTITUDE: Yes calm and Yes engaged ATTENTION/CONCENTRATION: Yes attention grossly intact Skin: COMMON NORMALS: no rashes or lesions noted GENERAL SKIN EXAM: no rashes or lesions noted Data Imaging^: Xray Ortho: I personally reviewed and interpreted this imaging study as follows: My impression: The patient has an oblique shortened midshaft tibia fracture which on AP views is in good alignment, on the lateral view, there is anterior displacement of the proximal fragment and there is also a proximal fibular fracture with significant displacement. Other CT: I personally reviewed and interpreted this imaging study as follows: My impression: No intra-articular fracture is visualized. A&P Assessment and plan (1) Fracture, tibia and fibula, shaft: Patient was admitted from [facility] last night. Discussion was undertaken with the emergency room physician there, and the patient was appropriately splinted. Her fracture was reported to be closed at that time. She has multiple neurologic issues secondary to previous cervical spine surgery and interventions. She notes a peripheral neuropathy with decreased sensation in all extremities. She states movement is normal except in the right upper extremity where she is unable to open her hand. She states she has difficulty using crutches secondary to this. Today, she is neurologically intact distally with motion and intact sensation although slightly decreased in her right lower extremity. Discussion is undertaken with her including risks and complications for open reduction internal fixation. I have planned an intramedullary nail at this time. The patient consents and plan is to proceed at approximately 1:00PM today. Status: Acute Consult Attestations Medical Necessity Statement: Patient was admitted secondary to increased risk with discharge home and safety issues. Coding Level of Care Code Acute Car Supervisor for mariel Gibson Diagnoses Fracture, tibia and fibula, shaft S82.209A; S82.409A
[2020-08-25] MEDS: ondansetron 2 mg/ML SDV 2 mL 4 MG IVP (09:15)
--- NOTE | 2020-08-25 10:21 | PC.CHAP ---
Pastoral Care Encounter/Spiritual Assessment Type of Contact [] Declined fare register repairer visit [] Patient/Family/Request visit [] Outpatient visit [] Follow-up visit [] Physician referral [] Code/Alert [x] Routine visit [] Staff referral [] Actively dying [] Patient sleeping [] Family support [] [] Out of room [] Palliative care [] [x] Receiving care in room [x] Pre-surgical visit [] Trauma [] Long length of stay [] ICU visit [] Other: Relational/Emotional Strength [x] Patient feels connected with others/family/visitors/staff [] Distress [] Loneliness/isolation [] Abandonment Spirituality of Patient [x] Person of Lauren [] Attends Taoism of their Lauren [x] Believes in Prayer [] Reads Bible or Hoahaoism materials [] There are Spiritual issues to be addressed Program Director Scouting Interventions [x] Prayer [x] Active listening [x] Non-anxious presence [x] Spiritual/emotional support [] Crisis/trauma care [x] Spiritual counseling [] Bereavement support [] Provided bereavement packet [] Provided Bible/devotional materials [] Provided toy/stuffed animal, coloring book to patient or family member [] Provided Communion [] Anointing/[place] [] Salvation [x] Completed spiritual assessment [] Other: Impact on Illness or Injury [] Angry [] Fearful [x] Anxious [] Often cries [] Exhaustion [] Unable to work [] Unable to attend judaism [] Unable to walk/stand [] Unable to read [] Unable to drive [] Unable to eat/drink [] Unable to sleep [] Unable to be with family [] Patient intubated [] Other: Summary going to have surgery today hopes to go home today or tomorrow has a good attitude, +1 Time spent with patient 10 mins
[2020-08-25] MEDS: ketorolac 30 mg/mL INJ 15 MG IVP (11:40)
--- NOTE | 2020-08-25 12:08 | PC.NURSE ---
surgery Pt went to surgery.
--- NOTE | 2020-08-25 12:22 | ANES.PREANE2 ---
Pre-Anesthetic Assessment Pre-Anesthetic Assessment: Height/Weight: Height 1.75 m Weight 73.028 kg Temp Pulse Resp BP Pulse Ox 97.8 F 82 17 173/83 95 08/25/20 08:00 08/25/20 09:14 08/25/20 09:14 08/25/20 08:00 08/25/20 09:14 Preop Diagnosis: Right Tib/Fib fracture Proposed Procedure: Operation Date: 08/25/20 13:30 Proposed Procedures p IM Tibial Nail Insertion(Right) - Inga Torres MD Was Beta Estrellita taken within 24 hours: N/A Was Clonidine taken within 24 hours: N/A Last intake: Intake Last Liquid Date 08/24/20 Last Liquid Time 22:00 Last Solid Date 08/24/20 Last Solid Time 20:00 Social: Social History: Tobacco and No alcohol Exam: Pre-Anes Outpt Exam: alert, oriented x 3, clear to auscultation bilaterally and regular rate & rhythm Airway: Submandibular: WNL Cervical ROM: WNL MP: 1 Dentition: False Pulmonary: Pulmonary: COPD CV/HEM: CV/HEM: None reported : Comments: Rectovaginal Fistula Hepatic: Hepatic: None reported GI: GI: GERD Comments: well controlled GERD Metabolic: Metabolic: None reported Musc/skel: Musc/skel: OA/DJD Neuropsych: Neuropsych: Anxiety Anesthetic Plan: ASA status: 3 Anesthesia: General Meds/Allergies Current Medications: Current Medications Generic Name Dose Route Start Last Admin Trade Name Freq PRN Reason Stop Dose Admin Albuterol Sulfate 2 puff 08/25/20 00:51 08/25/20 09:04 Albuterol 8 Gm M di INHALATION 2 puff Q4H.RESPIRATORY P RN Administration SHORTNESS OF LENORA TH Famotidine 20 mg 08/25/20 01:00 08/25/20 01:09 Famotidine 20 Mg /2 Ml Inj IVP 20 mg Q12H MANDEEP Administration Hydromorphone HCl 0.2 mg 08/25/20 00:46 08/25/20 09:11 Hydromorphone 1 Mg/Ml Inj 1 Ml IVP 0.2 mg Q4H PRN Administration SEVERE PAIN Lactated Ringer's 1,000 mls @ 75 ml s/hr 08/25/20 01:00 08/25/20 01:09 Lactated Ringers IV 75 mls/hr .[id number] MANDEEP Administration Ketorolac Trometha mine 15 mg 08/25/20 10:59 08/25/20 11:40 Ketorolac 30 Mg/ Ml Inj IVP 08/30/20 10:58 15 mg Q8H PRN Administration MODERATE PAIN Ondansetron HCl 4 mg 08/25/20 00:46 08/25/20 09:15 Ondansetron 2 Mg /Ml Sdv 2 Ml IVP 4 mg Q8H PRN Administration vomiting, or N/V if npo PFSH Anesthesia PFSH: Medical History (Updated 08/25/20 @ 08:16 by Inga Torres MD) Aftercare following surgery of the genitourinary system Colon polyps Surgical History (Updated 08/15/20 @ 11:18 by Edilberto Montiel MD) H/O vaginal surgery 07/27/2020- rectovaginal fistula repair performed by Dr. Montiel at [facility] History of cholecystectomy History of colonoscopy with polypectomy (~05/2020) History of neck surgery Family History Family/Other Diabetes maternal aunt Stroke maternal Heart disease maternal aunt Brother Hypertension Mother Hypertension Heart disease Sister Colon cancer, Onset Age: 46 Denies family history of Ovarian cancer Clotting disorder Hyperlipidemia Breast cancer Anesthesia complication Bleeding disorder Uterine cancer Thyroid condition Social History (Updated 08/12/20 @ 10:57 by Kailee Vazquez RN) Smoking and tobacco status: current every day smoker cigarettes Packs smoked per day: 0.5 Alcohol intake: never Female Reproductive History: Date of last menstrual period: 10/19/19 Data Anesthesia CBC & Chem 7: 08/25/20 05:43 08/25/20 05:43 Other Labs: Laboratory Results - last 48 hr 08/25/20 08/25/20 08/25/20 05:43 05:43 05:43 WBC 10.7 H RBC 4.79 Hgb 12.8 Hct 41.6 MCV 86.8 MCH 26.7 L MCHC 30.8 RDW 16.1 H Plt Count 201 MPV 11.6 H Neut % (Auto) 66.3 Lymph % (Auto) 22.7 [place] % (Auto) 9.0 Eos % (Auto) 1.1 Baso % (Auto) 0.7 Neut # (Auto) 7.09 Lymph # (Auto) 2.4 [place] # (Auto) 1.0 H Eos # (Auto) 0.1 Baso # (Auto) 0.1 Nucleated RBC % (auto) 0 Nucleated RBCs # 0.0 PT 13.70 INR 1.02 APTT 27.8 Sodium 145 Potassium 4.2 Chloride 106 Carbon Dioxide 31 H Anion Gap 12.2 BUN 7 Creatinine 0.5 GFR Calculation 128.1 Glucose 108 Calculated Osmolality 299 H Calcium 8.9 Magnesium 2.1 Cardiac Studies: No Data to Display
[2020-08-25] MEDS: sodium chloride 0.9% 1,000 ML 30 ML (12:43)
[2020-08-25] MEDS: acetaminophen 1,000 MG/100 ML PIGGYBACK 400 MG IV ×2 (12:44→21:22)
[2020-08-25] MEDS: CELEcoxib 200 mg Capsule 400 MG PO (12:44)
[2020-08-25] MEDS: vancomycin 1,000 MG in sodium chloride 0.9% 250 ML 250 MG IV (13:19)
[2020-08-25] MEDS: vancomycin 1,000 MG SDV 1000 MG IRRIGATION (14:44)
--- NOTE | 2020-08-25 16:29 | PM.PN ---
Subjective Subjective: Interval history: overnight labs and H&P reviewed. planned for OR today , c/o neuropathic pain Medications: Reviewed: Yes Vitals/I&O/Wt Last Vital Signs Temp 97.9 F 08/25/20 12:27 Pulse 82 08/25/20 12:27 Resp 18 08/25/20 12:27 BP 144/86 08/25/20 12:28 Pulse Ox 93 08/25/20 12:27 08/25/20 08/25/20 08/25/20 06:59 14:59 22:59 Intake Total 250 / 250 Balance 250 / 250 Weight last 48 hrs Weight 73.028 kg Physical Exam Narrative: EXAM NARRATIVE: GEN: Awake, alert and oriented, no acute distress CVS: S1S2 N RS: CTA B/L Abd: Soft, nt/nd , bs+ HR ADMINISTRATIVE ASSISTANT: no focal neuro deficits Urinary Catheter Management^: F: Cath Placed During This Visit: yes Urinary Catheter Date of Insertion: 08/25/20 Urinary Catheter Time of Insertion: 13:40 Data : 08/25/20 05:43 08/25/20 05:43 A&P Additional A&P Information 54-year-old female who was transferred from [facility] with diagnosis of right tib-fib displaced fracture after a mechanical fall. Right tib-fib fracture. NPO. Dilaudid as needed. Planned for OR this afternoon Perioperative risk assessment. The patient will probably undergo intermediate risk surgery. The patient has T wave changes on EKG. No previous to compare with. However no history of CHF or coronary artery disease. No chest pain or shortness of breath. She reports good functional status which is above 4 METS. She is in her most optimal state to undergo this surgery. No additional treatments or testing is necessary prior to the surgery. Hypertension. Will order as needed labetalol. Tobacco abuse. Counseling is provided. The plan of care was discussed with the patient. She verbalized understanding and agreement. Attestations Medical Necessity Statement*: planned for ORIF today in the OR Coding Level of Care Code Acute Flat Surfacer Jewel for Ruben Gibson
[2020-08-25] MEDS: silvasorb gel 44.4 mL 1 APPLIC TOPICAL (16:37)
--- NOTE | 2020-08-25 17:06 | XR_ITS ---
WS: [id number] Right leg including the tibia and fibula, C-arm fluoroscopy views, 08/25/2020 Clinical Data: OR PICS Comparison: Right leg, 08/25/2020 Findings: An intramedullary jonathan has been inserted into the length of the right tibia to reduce the oblique frac ture of the distal third of the tibia. Transverse screws are present in the proximal and distal portions of the jonathan for fixation. The obliqu e fracture of the proximal right fibula is noted. XR/XR tibia fibula RT 2V [id number] Impression: Internal fixation of distal right tibial fracture.
--- NOTE | 2020-08-25 17:06 | ANE.PACU2 ---
Inpatient post-anesthesia follow up: Airway intact: Yes Vital signs: Temperature 97.9 F Pulse Rate 82 Respiratory Rate 18 Blood Pressure 144/86 Pulse Oximetry 93 Oxygen Delivery Me thod Room Air Oxygen Flow Rate 1 Fraction of Inspir ed Oxygen Hydration adequate: Yes Nausea and vomiting: No Pain level: 3 Additional Comments: Drowsy but easily arousable
--- NOTE | 2020-08-25 17:15 | P.OP_ITS ---
Operative Report Date of procedure: August 25, 2020 Pre-op Diagnosis: Right Tib/Fib fracture Post-op diagnosis: same Post-op Findings: Tibial shaft fracture, displaced with fracture blisters. Procedure Done: Open reduction internal fixation right tibia fracture, long oblique, with Waverly intramedullary jonathan Implants: The [place]averly T2 alpha tibial system intramedullary nail size 9 mm x 330 mm with a 5 mm x 11.5 mm end cap, 2 proximal screws 5 mm x 40 mm and and 5 mm x 52.5 mm as well as 2 distal screws 5 mm x 32.5 mm and 5 mm x 42.5 mm. Specimens removed/disposition: None Pathology: none sent Surgeon: Inga Torres Fishing Vessel Deckhand: [facility] operating room technicians Anesthesia: General (Intubated, ASA 3) Estimated blood loss (mL): 20 Tourniquet time (min): 120 Tourniquet time: At 250 mmHg IV fluids (mL): 800 Urine output (mL): 200 Complications: None Findings: Long oblique unstable midshaft to distal fibula fracture with proximal fibula fracture. Condition: stable Disposition: PACU (Then return to floor for rehabilitation) Brief History: This 54-year-old woman presented to [facility] in [facility] last evening. She subsequently was transferred here to [facility] for definitive care of her fracture at the junction of the middle and distal thirds of the tibial shaft. This was accompanied with a proximal fibula fracture adding to the instability of the fracture. Preoperative CT scanning demonstr ated the fracture did not extend into the joint. The patient was scheduled for an intramedullary jonathan. Risks and complications were discussed and consents were signed preoperatively. Procedure: Patient is brought to the operating theater. After undergoing adequate general anesthesia with intubation, ASA3, the patient was transferred to the operating room table, positioned on the table and fluoroscopic guidance was obtained throughout the surgical procedure. Prior to the commencement of the surgical procedure, a surgical pause was performed. At the time of the surgical pause, we confirmed the site and side of surgery as well as preoperative surgical markings and appropriate and timely administration of IV antibiotics, vancomycin 1 g. Availability of equipment was also confirmed. Fluoroscopy was used to confirm the fracture was appropriately reduced in both AP and lateral planes. An incision was then made over the anterior knee slightly medial to midline to allow access to the patellar tendon. Plan was to enter the knee medial to the patellar tendon and retracted laterally to allow us to access the anterior plateau anterior laterally along the midline. The patient's anterior tibial bone was soft. I was able to initially place a Boles into this. Fluoroscopic guidance was used to determine that the freer was in appropriate position for placement of the guidewire. A guidewire was subsequently placed. Fluoroscopy was used to evaluate the entry point of the guidewire and also positioned down the canal for proximal reaming. Once the position was appropriate, we reamed proximally over the guidewire. The short guidewire was removed and we passed a long guidewire through this area and across the fracture site into the distal tibia. Passage of the guidewire was difficult as the patient had a bone island that was quite hard and did not allow passage down the midportion of the distal tibia. We were however able to ream over this and gently and aggressively at the same time advance the guidewire using a small 8 mm reamer. The 9 mm reamer would not pass without displacement of the guidewire. We confirmed that this guidewire was in appropriate position in AP and lateral planes, and progressive reaming was accomplished to a size 11 to allow placement of the size 9 tibial nail. A 9 mm x 330 mm T2 alpha tibial nail was placed into appropriate position with positioning being confirmed in AP and lateral planes on the x-ray. It passed without further fracture displacement, but it was noted to be quite tight and passage was somewhat difficult. Once the tibial nail was in appropriate position, we confirmed alignment in AP and lateral planes proximally and distally. Attention was then directed to placement of the proximal screws. The jogging system was used to place 2 screws proximally one from anterolateral and one from midline medial. Position of the screws was confirmed in AP and lateral planes. Lengths were felt to be appropriate. 2 distal screws were placed particularly secondary to the instability at the fracture site. The screws were 1 AP and one medial to lateral screw. This was accomplished with a perfect kwethluk technique. The screw lengths were confirmed in AP and lateral planes. Once the screw was in position, we confirmed appropriate placement of the components. Attention was then directed to closure. The knee was copiously irrigated with normal saline with antibiotics. Following this it was dried and closed. Fascial tissues medial to the patellar tendon were closed with 0 Vicryl. Subcutaneous tissues were closed with 2-0 Monocryl, and the skin was closed with skin tiffani followed by Dermabond. This was then covered with Telfa 4 x 4's and ABDs. The 4 incisions for placement of the locking screws were closed with tiffani. The patient's fracture blisters which have been debrided were covered with silver sorb followed by soft dressings. These dressings were Telfa, 4 x 4's, ABDs, sterile soft roll, and an Ross wrap. The patient was placed in a cam walker boot. The patient was returned to recovery in satisfactory condition. The patient will be discharged to the floor for postoperative rehabilitation and pain management. There were no specimens obtained. Associated Problem List Diagnoses (1) Fracture, tibia and fibula, shaft: Qualifiers: Encounter type: initial encounter Fracture type: closed Laterality: right Qualified Code(s): S82.201A - Unspecified fracture of shaft of right tibia, initial encounter for closed fracture; S82.401A - Unspecified fracture of shaft of right fibula, initial encounter for closed fracture
[2020-08-25] MEDS: docusate sodium 100 mg Capsule PO (18:14)
[2020-08-25] MEDS: oxyCODONE 5 mg IR Tab/Cap PO (18:15)
[2020-08-25] MEDS: CELEcoxib 200 mg Capsule PO (21:20)
[2020-08-26] VITALS (8 sets, daily range): BP systolic 116–179; BP diastolic 69–82; PULSE 59–87; RESP 16–20; TEMP 36.1–37.6; O2SAT 94–100
[2020-08-26] MEDS: oxyCODONE 5 mg IR Tab/Cap PO ×3 (00:26→11:11)
[2020-08-26] MEDS: famotidine 20 mg/2 mL INJ IVP (00:29)
[2020-08-26] MEDS: ketorolac 30 mg/mL INJ 15 MG IVP (03:51)
[2020-08-26] MEDS: acetaminophen 1,000 MG/100 ML PIGGYBACK 400 MG IV (04:40)
[2020-08-26] MEDS: lactated ringers 1,000 ML 75 ML IV (07:37)
[2020-08-26] MEDS: aspirin 325 mg EC Tablet PO (07:40)
[2020-08-26] MEDS: docusate sodium 100 mg Capsule PO (07:42)
[2020-08-26] MEDS: CELEcoxib 200 mg Capsule PO (07:42)
--- NOTE | 2020-08-26 10:48 | PM.PN ---
Subjective Subjective: Interval history: The patient was admitted following an emergency room visit to [facility]. She had a very unstable tib-fib fracture. Last evening, she underwent open reduction internal fixation utilizing an intramedullary jonathan. Prior to the surgical intervention, the patient adamantly refused custodial. She also stated that if she could not have a cigarette and her Mountain Dew, she was going to leave . We convinced her to spend the night. Today, she is seen with her daughter. The daughter lives in [place], and she would like to continue care there, however, she is cautioned that she may have difficulty finding an orthopedist to accept her. After discussion, the patient and her daughter have agreed that we will continue care here in [place]. She will need to be seen in 2 weeks. Medications: Reviewed: Yes Vitals/I&O/Wt Last Vital Signs Temp 98.1 F 08/26/20 07:54 Pulse 75 08/26/20 07:54 Resp 18 08/26/20 07:54 BP 156/79 08/26/20 07:54 Pulse Ox 94 08/26/20 07:54 08/25/20 08/26/20 08/26/20 22:59 06:59 14:59 Intake Total 1340 / 1690 540 / 2230 1000 / 1000 Output Total 420 / 420 2350 / 2770 Balance 920 / 1270 -1810 / -540 1000 / 1000 Weight last 48 hrs Weight 161 lb Physical Exam Const: COMMON NORMALS: no acute distress, average body habitus, patient oriented x3 and alert GENERAL APPEARANCE: cooperative and comfortable ORIENTATION/CONSCIOUSNESS: Yes awake HENMT: COMMON NORMALS: normocephalic and atraumatic HEAD & SCALP: normocephalic and atraumatic Eye: GENERAL EYE: appearance normal, both eyes and all related structures Chest: COMMONS NORMALS: normal inspection of the chest Resp: COMMON NORMALS: normal respiratory effort EFFORT & INSPECTION: Yes able to speak in complete sentences and Yes symmetric chest movement Extremity: NARRATIVE EXTREMITY EXAM: At the level of the fracture, there is an area which had multiple fracture blisters prior to the surgical intervention. These were debrided. There is obvious trauma to the skin in this area from the fracture. I have significant concern regarding the viability of the skin, however, it actually looks better this morning than it did at the end of her surgical procedure. This is examined with the daughter. SilvaSorb is placed. RIGHT LOWER EXTREMITY: Yes lower leg (Surgical incisions are benign.) Right lower leg: Yes inspection (Small fracture blisters are still present), Yes palpation (There is no tenderness to palpation about the calf.), Yes neurovascular exam (Good dorsiflexion of the foot.) and Yes other (Toes are warm and pink.) Neuro: COMMON NORMALS: patient oriented x3 SENSORIUM/ORIENTATION: Yes alert Psych: COMMON NORMALS: mental status grossly normal APPEARANCE: Yes grossly normal ATTITUDE: Yes calm and Yes engaged ATTENTION/CONCENTRATION: Yes attention grossly intact Skin: COMMON NORMALS: no rashes or lesions noted GENERAL SKIN EXAM: no rashes or lesions noted Urinary Catheter Management^: F: Cath Placed During This Visit: yes, but has since been removed by the nurse Reason for Continuing Indwelling Catheter: Decision to DC Catheter Urinary Catheter Date of Insertion: 08/25/20 Urinary Catheter Time of Insertion: 13:40 Date Urinary Catheter Removed: 08/26/20 Time Urinary Catheter Discontinued: 06:44 Data : 08/25/20 05:43 08/25/20 05:43 A&P Assessment and plan (1) Fracture, tibia and fibula, shaft: Patient underwent open reduction internal fixation of her right tib-fib fracture yesterday afternoon. She was admitted to the hospital from [facility] emergency department. Although the patient's fracture was closed, there was significant soft tissue injury from this fracture. This is still of concern. There were large fracture blisters at the time of her surgical treatment. These were debrided. Intramedullary jonathan was placed uneventfully. Today, the patient remains neurologically intact. She is working with physical therapy. She is seen in the room with her daughter. Her daughter is planning to take her to her home in [place]. She queries whether or not she might be able to find an orthopedic surgeon closer to home, but after discussion, she has agreed to continue to bring her mom to this area for follow-up. She is also instructed in wound care which will be SilvaSorb with a dressing change daily. The patient also will be increased from nonweightbearing to touchdown weightbearing. I have asked him to follow-up with me in approximately 2 weeks time. We will obtain x-rays at that time. Secondary to skin issues, we will plan a short course of prophylactic antibiotics. Status: Acute Qualifiers: Encounter type: initial encounter Fracture type: closed Laterality: right Qualified Code(s): S82.201A - Unspecified fracture of shaft of right tibia, initial encounter for closed fracture; S82.401A - Unspecified fracture of shaft of right fibula, initial encounter for closed fracture Attestations Medical Necessity Statement*: Patient is ready for discharge to home with her daughter. Time Spent in Patient Care: 16 - 35 minutes (>than 50% of time spent in counselling and/or direct pt care on unit). Coding Level of Care Code Acute Paint Roller Cover Machine Setter for [facility] Fwd Diagnoses Fracture, tibia and fibula, shaft S82.201A; S82.401A Encounter type: initial encounter Fracture type: closed Laterality: right
--- NOTE | 2020-08-26 11:25 | P.DS_ITS ---
Discharge Providers Date of Admission: 08/24/20 23:00 Date of Discharge: August 26, 2020 Attending Provider at Admission: Brad Fritz Attending Provider at Discharge: Vandana Morgan MD Primary Care Provider: Rosita Wright CERTIFIED REHABILITATION COUNSELOR Diagnoses at Discharge Discharge Diagnosis (1) Fracture, tibia and fibula, shaft: Status: Acute Qualifiers: Encounter type: initial encounter Fracture type: closed Laterality: right Qualified Code(s): S82.201A - Unspecified fracture of shaft of right tibia, initial encounter for closed fracture; S82.401A - Unspecified fracture of shaft of right fibula, initial encounter for closed fracture Reason for Visit Reason for Visit: broken leg Hospital Course Hospital Course Eliane Lawrence is a 54 year old female who presented from [facility] after suffering a displaced right tibial shaft fracture with proximal fibula fracture. The patient was splinted at the emergency department, and upon discussion with the emergency room physician, he felt admission would be appropriate to the medical service secondary to the patient's multiple medical issues. Patient underwent open reduction internal fixation of her right tib-fib fracture yesterday afternoon. lthough the patient's fracture was closed, there was significant soft tissue injury from this fracture. There were large fracture blisters at the time of her surgical treatment. These were debrided. Intramedullary jonathan was placed uneventfully.She is working with physical therapy. At discharge she will be receiving 5 days of Keflex 500 p.o. twice daily to assist with healing of her lower extremity wounds. She is also instructed in wound care which will be SilvaSorb with a dressing change daily. The patient also will be increased from nonweightbearing to touchdown weightbearing. Follow-up with Dr. Russell in 2 weeks time. She has a history of COPD, no acute exacerbation during this admission. She prefers to follow up with her pain management physician for any change in her pain medications. Physical Exam Narrative: EXAM NARRATIVE: GEN: Awake, alert and oriented, no acute distress CVS: S1S2 N RS: CTA B/L Abd: Soft, nt/nd , bs+ DRIVER MANAGER: no focal neuro deficits Urinary Catheter Management^: F: Cath Placed During This Visit: yes, but has since been removed by the nurse Reason for Continuing Indwelling Catheter: Decision to DC Catheter Urinary Catheter Date of Insertion: 05/20/21 Urinary Catheter Time of Insertion: 13:40 Date Urinary Catheter Removed: 08/26/20 Time Urinary Catheter Discontinued: 06:44 Discharge Data Data Completed and Pending: Completed Studies During Hospitalization Category Date Time Status CT ankle RT wo co n* [id number] Urgent Cat Scan 08/25/20 08:22 Completed XR tibia fibula R T 2V [id number] Routine Exams 08/25/20 17:06 Completed XR tibia fibula R T 2V [id number] Stat Exams 08/25/20 07:30 Completed Vitals: Last Vital Signs Temp 96.9 F L 08/26/20 11:20 Pulse 59 L 08/26/20 11:20 Resp 18 08/26/20 11:20 BP 116/69 08/26/20 11:20 Pulse Ox 100 08/26/20 11:20 Discharge Plan Discharge Patient Disposition: Home Health Service Condition: Stable Prescriptions: New aspirin 325 mg Tablet,Delayed Release (Dr/Ec) 325 mg PO DAILY 30 Days Qty: 30 RF: 0 doxycycline hyclate 100 mg capsule 100 mg PO BID 5 Days Qty: 10 RF: 0 Continued hydroxyzine HCl 25 mg tablet 25 mg PO QID PRN (Reason: Anxiety) RF: 0 fluticasone propionate [Allergy Relief (fluticasone)] 50 mcg/actuation spray,suspension 1 spray intranasal DAILY RF: 0 baclofen 10 mg tablet 10 mg PO TID PRN (Reason: Pain) RF: 0 hydrocodone-acetaminophen 10-325 mg tablet 1 tab PO Q6H PRN (Reason: Pain) RF: 0 benzonatate 200 mg capsule 200 mg PO BID PRN (Reason: Cough) RF: 0 pantoprazole 40 mg tablet,delayed release (DR/EC) 40 mg PO DAILY RF: 0 pregabalin 100 mg capsule 100 mg PO QID RF: 0 Colace 100 mg capsule 100 mg PO BID PRN (Reason: Constipation) RF: 0 Discharge Orders: Discharge Order (Routine); Ordered 08/26/20 Ordered By: Inga Torres Other Ambulatory Orders: DME: Walker (Order) Location: None Selected Ordered By: Inga Torres DME: Wheelchair (Order) Location: None Selected Ordered By: Inga Torres Referrals: Inga Torres MD [Physician] - 09/08/20 11:15 am Discharge Diet: Advance as tolerated and Usual diet Discharge Activity: Limit activity as instructed, Use walker/crutches as instructed, Wheelchair as instructed and As per PT/OT instructions Patient Instructions: Doxycycline (By mouth), Aspirin (By mouth), Ankle Fracture (GEN), How to Choose and Use a Walker (GEN), How to Choose and Use a Wheelchair (GEN), Wheel Chair Transfers (GEN), Opioid Safety Activity Restrictions/Additional Instructions: Touch down weight bearing right lower extremity. Dressing change daily. Discharge Attestations Time Spent in Discharge Care*: greater than 30 min Specific Discharge Activities: discussing with pcp/other providers and discussing with bilingual patient support caseworker/social workers/dc planners Quality Metrics Clinical Quality Measures During this hospital stay, did patient experience: None Coding Level of Care Code Acute [facility] DC note Diagnoses Fracture, tibia and fibula, shaft S82.201A; S82.401A Encounter type: initial encounter Fracture type: closed Laterality: right
--- NOTE | 2020-08-26 17:37 | PC.RESP ---
Smoking Cessation information sent to patient.
== END 2020-08-26 15:00 | disposition home health service (06) ==
PROVIDERS: Specialist; Admitting Provider Internal Medicine; PCP Nurse Practitioner Family; Visit Provider Student in an Organized Health Care Education/Training Program
PROC: (CPT 27759; principal; 2020-08-25 13:00)
DX: S82.201A Unspecified fracture of shaft of right tibia, initial encounter for closed fracture (principal); S82.401A Unspecified fracture of shaft of right fibula, initial encounter for closed fracture; X58.XXXA Exposure to other specified factors, initial encounter; Z91.81 History of falling; J44.9 Chronic obstructive pulmonary disease, unspecified; I10 Essential (primary) hypertension; F17.210 Nicotine dependence, cigarettes, uncomplicated
CPT/HCPCS: 27759; 36415; 51702; 73590; 73700; 76000; 80048; 83735; 85025; 85610; 85730; 94640; 96365; 97110; 97116; 97161; 97165; 97530; C1713; G0378; G0379; J0330; J1100; J1170; J1885; J2405; J2704; J3010; J3370; J3490; J3535; J7030; J7050

== ENCOUNTER → 2020-09-08 12:22 | Outpatient (BNVA) | payer MEDICAID, SELFPAY | PROVIDERS: PCP Nurse Practitioner Family; Visit Provider Specialist | DX: S82.201A Unspecified fracture of shaft of right tibia, initial encounter for closed fracture (principal); S82.401A Unspecified fracture of shaft of right fibula, initial encounter for closed fracture; X58.XXXA Exposure to other specified factors, initial encounter | CPT/HCPCS: 73590 ==

== ENCOUNTER → 2020-10-06 11:46 | Outpatient (BNVA) | payer MEDICAID, SELFPAY | PROVIDERS: PCP Nurse Practitioner Family; Visit Provider Specialist | DX: S82.201A Unspecified fracture of shaft of right tibia, initial encounter for closed fracture (principal); S82.401A Unspecified fracture of shaft of right fibula, initial encounter for closed fracture; Z48.89 Encounter for other specified surgical aftercare; Z98.890 Other specified postprocedural states; Z87.81 Personal history of (healed) traumatic fracture; X58.XXXA Exposure to other specified factors, initial encounter | CPT/HCPCS: 73590 ==

== ENCOUNTER → 2020-10-27 09:32 | Outpatient (BNVA) | payer MEDICAID, SELFPAY | PROVIDERS: PCP Nurse Practitioner Family; Visit Provider Specialist | DX: S82.201A Unspecified fracture of shaft of right tibia, initial encounter for closed fracture (principal); S82.401A Unspecified fracture of shaft of right fibula, initial encounter for closed fracture; Z48.89 Encounter for other specified surgical aftercare; Z98.890 Other specified postprocedural states; Z87.81 Personal history of (healed) traumatic fracture; X58.XXXA Exposure to other specified factors, initial encounter | CPT/HCPCS: 73590 ==

== ENCOUNTER → 2020-11-30 08:49 | Outpatient (BNVA) | payer MEDICAID, SELFPAY | PROVIDERS: PCP Nurse Practitioner Family; Visit Provider Specialist | DX: S82.201A Unspecified fracture of shaft of right tibia, initial encounter for closed fracture (principal); S82.401A Unspecified fracture of shaft of right fibula, initial encounter for closed fracture; Z48.89 Encounter for other specified surgical aftercare; Z98.890 Other specified postprocedural states; Z87.81 Personal history of (healed) traumatic fracture; X58.XXXA Exposure to other specified factors, initial encounter | CPT/HCPCS: 73590 ==

== ENCOUNTER → 2021-01-04 08:22 | Outpatient (BNVA) | payer MEDICAID, SELFPAY | PROVIDERS: PCP Nurse Practitioner Family; Visit Provider Specialist | DX: S82.201A Unspecified fracture of shaft of right tibia, initial encounter for closed fracture (principal); S82.401A Unspecified fracture of shaft of right fibula, initial encounter for closed fracture; Z48.89 Encounter for other specified surgical aftercare; Z98.890 Other specified postprocedural states; Z87.81 Personal history of (healed) traumatic fracture; X58.XXXA Exposure to other specified factors, initial encounter | CPT/HCPCS: 73590 ==

== ENCOUNTER → 2021-08-21 14:12 | Outpatient (BNVA) | payer MEDICAID, SELFPAY | PROVIDERS: PCP Nurse Practitioner Family; Visit Provider Nurse Practitioner Family | DX: Z98.890 Other specified postprocedural states (principal); Z87.81 Personal history of (healed) traumatic fracture | CPT/HCPCS: 73590; 99213 ==

== ENCOUNTER → 2022-09-19 09:13 | Outpatient (BNVA) | payer MEDICAID, SELFPAY | PROVIDERS: PCP Nurse Practitioner Family; Visit Provider Specialist | DX: Z98.890 Other specified postprocedural states (principal); Z87.81 Personal history of (healed) traumatic fracture; S82.201D Unspecified fracture of shaft of right tibia, subsequent encounter for closed fracture with routine healing; S82.401D Unspecified fracture of shaft of right fibula, subsequent encounter for closed fracture with routine healing; X58.XXXD Exposure to other specified factors, subsequent encounter | CPT/HCPCS: 73590; 99213 ==